=== PATIENT | male | born 1970 | race Two or more races ===

== ENCOUNTER 2017-11-23 13:21 | Inpatient (IN) | payer OTHER ==
[~2017-11-23] VITALS: Ht 175.3 cm; Wt 167.8 kg
[~2017-11-23 13:21] MED LIST: COZAAR50 MG; LOSARTAN-HCTZ1 EAC2 PO; SYNTHROID100 MCG; SYNTHROID88 MCG; [UNRECOGNIZED DRUG - REMARK]
[2017-11-23] MEDS ORDERED: TOPROL XL50 M1 (13:40)
== END 2017-11-29 18:46 | disposition home or self-care (01) | DRG 690 ==
LOC: ER 13:21 → MEDJ 22:08 → MEDI 22:08 → MEDJ 11-26 23:15
PROC: BW25Y0Z Computerized Tomography (CT Scan) of Chest, Abdomen and Pelvis using Other Contrast, Unenhanced and Enhanced (ICD-10-PCS; principal; 2017-11-23)
PROC: 8E0ZXY6 Isolation (ICD-10-PCS; 2017-11-26)
DX: N10 Acute pyelonephritis (principal); K92.2 Gastrointestinal hemorrhage, unspecified; B96.29 Other Escherichia coli [E. coli] as the cause of diseases classified elsewhere; Z16.12 Extended spectrum beta lactamase (ESBL) resistance; N20.0 Calculus of kidney

== ENCOUNTER 2018-01-12 18:17 | Inpatient (IN) | payer OTHER ==
[~2018-01-12] VITALS: Ht 177.8 cm; Wt 158.8 kg
[~2018-01-12 18:17] MED LIST changes: +TOPROL XL50 M1
== END 2018-01-16 18:01 | disposition home or self-care (01) | DRG 690 ==
LOC: ER 18:17 → MEDJ 01-13 09:58 → SEC-K 01-13 09:58 → MEDJ 01-13 10:57
DX: N10 Acute pyelonephritis (principal); Z68.43 Body mass index [BMI] 50.0-59.9, adult; B96.29 Other Escherichia coli [E. coli] as the cause of diseases classified elsewhere; N20.0 Calculus of kidney; K76.0 Fatty (change of) liver, not elsewhere classified; M54.89 Other dorsalgia; E03.8 Other specified hypothyroidism; I10 Essential (primary) hypertension; G47.33 Obstructive sleep apnea (adult) (pediatric); E66.01 Morbid (severe) obesity due to excess calories; Z88.0 Allergy status to penicillin

== ENCOUNTER → 2018-01-20 | Outpatient (CLI) | payer OTHER ==
[~2018-01-20] MED LIST changes: +[UNRECOGNIZED DRUG - OTHER] IV
== END | disposition home or self-care (01) ==
LOC: RAD 18:29
DX: N20.0 Calculus of kidney (principal)

== ENCOUNTER 2018-01-24 05:44 | Day surgery (SDC) | payer OTHER | END 2018-01-24 13:15 | disposition home or self-care (01) | LOC: CIR.AMB 05:44 | DX: N20.0 Calculus of kidney (principal) ==

== ENCOUNTER 2018-02-03 16:07 | Inpatient (IN) | payer OTHER ==
[~2018-02-03] VITALS: Ht 177.8 cm; Wt 167.4 kg
[2018-02-05] MEDS ORDERED: MERREM1 GM IV (16:07)
== END 2018-02-08 12:55 | disposition home or self-care (01) | DRG 690 ==
LOC: MEDJ 16:07 → SEC-K 16:07 → MEDJ 17:54
PROC: B246ZZZ Ultrasonography of Right and Left Heart (ICD-10-PCS; principal; 2018-02-04)
PROC: BW25Y0Z Computerized Tomography (CT Scan) of Chest, Abdomen and Pelvis using Other Contrast, Unenhanced and Enhanced (ICD-10-PCS; 2018-02-05)
DX: N10 Acute pyelonephritis (principal); N20.0 Calculus of kidney; I10 Essential (primary) hypertension; E03.8 Other specified hypothyroidism; B96.4 Proteus (mirabilis) (morganii) as the cause of diseases classified elsewhere; B96.1 Klebsiella pneumoniae [K. pneumoniae] as the cause of diseases classified elsewhere

== ENCOUNTER 2021-06-12 07:06 | Outpatient (CLI) | payer OTHER ==
[~2021-06-12 07:06] MED LIST changes: +MERREM1 GM IV
== END 2021-06-12 07:14 | disposition home or self-care (01) ==
LOC: TOM 07:06 → SONOGRAMA 07:06
PROVIDERS: ATTEND Internal Medicine
DX: G45.9 Transient cerebral ischemic attack, unspecified (principal); N18.30 Chronic kidney disease, stage 3 unspecified

== ENCOUNTER 2021-06-12 08:44 | Outpatient (CLI) | payer OTHER | END 2021-06-12 08:55 | disposition home or self-care (01) | LOC: LAB 08:44 | PROVIDERS: ATTEND Internal Medicine | DX: D64.9 Anemia, unspecified (principal); E11.9 Type 2 diabetes mellitus without complications; E78.00 Pure hypercholesterolemia, unspecified; N39.0 Urinary tract infection, site not specified; E03.8 Other specified hypothyroidism ==

== ENCOUNTER 2021-06-12 10:22 | Outpatient (CLI) | payer OTHER | END 2021-06-12 10:23 | disposition home or self-care (01) | LOC: NUCLEAR 10:22 | PROVIDERS: ATTEND Internal Medicine | DX: C45.9 Mesothelioma, unspecified (principal) ==

== ENCOUNTER 2021-06-19 09:03 | Outpatient (CLI) | payer OTHER | END 2021-06-19 14:34 | disposition home or self-care (01) | LOC: LAB 09:03 | PROVIDERS: ATTEND Internal Medicine | DX: G43.701 Chronic migraine without aura, not intractable, with status migrainosus (principal); R41.0 Disorientation, unspecified; Z11.3 Encounter for screening for infections with a predominantly sexual mode of transmission ==

== ENCOUNTER 2022-03-23 07:44 | Day surgery (SDC) | payer OTHER ==
[~2022-03-23 07:44] MED LIST changes: +IRBESARTAN-HCT1 EAC1 PO; +NORVASC10 MG PO
== END 2022-03-23 15:00 | disposition home or self-care (01) ==
LOC: CIR.AMB 07:44
PROVIDERS: ATTEND Urology
DX: N20.0 Calculus of kidney (principal); I10 Essential (primary) hypertension; E03.9 Hypothyroidism, unspecified; E66.09 Other obesity due to excess calories; Z20.822 Contact with and (suspected) exposure to COVID-19

== ENCOUNTER 2022-04-12 15:26 | Inpatient (IN) | payer OTHER ==
[~2022-04-12] VITALS: Ht 175.3 cm; Wt 140.6 kg
--- NOTE | 2022-04-12 16:08 | NUR ---
PACIENTE MASCULINO DE 51 ANOS REFIERE TENER FIEBRE, DOLOR DE ESPALDA Y ARDOR AL ORINAR. REFIERE QUE EL ELHAM 12 DE ENERO LO OPERARON CON LAIZER Y LE ROMPIERON JEWEL PIERDRAS EN EL RINON EZQUIERDO
--- NOTE | 2022-04-12 19:42 | NUR ---
SE ORIENTA PTE SOBRE EL TRATAMIENTO ORDENADO POR EL DR POWELL PTE ALERTA Y ORIENTADO POR 3 RN RICHIE REALIZA MUESTRAS DE LABORATORIO Y ADMINISTRAN MEDICAMENTOS DIDI ORDENADO.
[2022-04-16] MEDS ORDERED: MACRODANTIN100 M1 PO (10:20)
== END 2022-04-16 15:38 | disposition home or self-care (01) | DRG 699 ==
LOC: ER 15:26 → SEC-K 21:49 → SURH 21:49
PROVIDERS: ADMIT Internal Medicine; ATTEND Internal Medicine
PROC: BT43ZZZ Ultrasonography of Bilateral Kidneys (ICD-10-PCS; principal; 2022-04-12)
DX: T83.593A Infection and inflammatory reaction due to other urinary stents, initial encounter (principal); N10 Acute pyelonephritis; N39.0 Urinary tract infection, site not specified; Z68.42 Body mass index [BMI] 45.0-49.9, adult; B96.89 Other specified bacterial agents as the cause of diseases classified elsewhere; D69.59 Other secondary thrombocytopenia; T36.1X5A Adverse effect of cephalosporins and other beta-lactam antibiotics, initial encounter; Y92.230 Patient room in hospital as the place of occurrence of the external cause; Y73.1 Therapeutic (nonsurgical) and rehabilitative gastroenterology and urology devices associated with adverse incidents; Y84.6 Urinary catheterization as the cause of abnormal reaction of the patient, or of later complication, without mention of misadventure at the time of the procedure; I10 Essential (primary) hypertension; E03.9 Hypothyroidism, unspecified; E66.01 Morbid (severe) obesity due to excess calories; Z87.442 Personal history of urinary calculi

== ENCOUNTER 2022-06-08 15:52 | Outpatient (CLI) | payer OTHER ==
[~2022-06-08 15:52] MED LIST changes: +MACRODANTIN100 M1 PO
== END 2022-06-08 15:57 | disposition home or self-care (01) ==
LOC: RAD 15:52
PROVIDERS: ATTEND Urology
DX: R31.1 Benign essential microscopic hematuria (principal); N40.0 Benign prostatic hyperplasia without lower urinary tract symptoms; N20.0 Calculus of kidney

== ENCOUNTER 2023-05-08 16:11 | Emergency (ER) | payer OTHER ==
[~2023-05-08] VITALS: Ht 176.5 cm; Wt 145.1 kg
[2023-05-08] MEDS ORDERED: LIPITOR20 MG (16:51)
[2023-05-08] MEDS ORDERED: FOLIC ACID20 MG PO (16:51)
[2023-05-08] MEDS ORDERED: ADULT LOW DOSE81 M1 PO (16:52)
[2023-05-08] MEDS ORDERED: TRAMADOL HCL 50 MG TABLET PO STA (17:57)
[2023-05-08 18:43] LABS: HEMATOCRIT 47.5 % (39.0-48.0); HEMOGLOBIN 15.8 g/dL (13-16.00); MEAN CELL VOLUME 90.8 fL (80.0-100.00); MEAN CORPUSCULAR HEMOGLOBIN 30.1 pg (27.00-32.0); MEAN CORPUSCULAR HGB CONC 33.2 g/dl (32.0-36.0); PLATELET COUNT 189 K/uL (150-450); RED BLOOD COUNT 5.23 M/uL (4.00-6.00); RED CELL DISTRIBUTION WIDTH 14.6 % (11.5-14.5)
[2023-05-08 20:19] LABS: CALCIUM 9.8 mg/dL (8.5-10.1); CREATININE SERUM 1.24 mg/dL (0.70-1.30); GFR 60.98; POTASSIUM 3.83 mEq/L (3.5-5.1)
[2023-05-08 20:21] LABS: PH,URINE 5.5 (5.0-8.0); URINE APPEARANCE Clear; URINE BILIRRUBIN Negative (NEGATIVE); URINE BLOOD Moderate; URINE COLOR Yellow; URINE GLUCOSE Negative (NEGATIVE); URINE LEUKOCYTE Negative; URINE NITRATE Negative; URINE PROTEIN Trace (NEGATIVE); URINE UROBILINOGEN 0.2 E.U./dl
[2023-05-08 20:31] LABS: URINE BACTERIA 35.2 uL (0.0-1933); URINE EPITHELIAL CELLS 2.4 uL (0.0-38.8); URINE RBC 15.3 uL (0.0-20.8); URINE WBC 2.7 uL (0.0-23.2)
[2023-05-08] MEDS ORDERED: KETOROLAC TROMETHAMINE 30 MG VIAL IM STA (20:57)
== END 2023-05-08 21:03 | disposition home or self-care (01) ==
LOC: ER 16:11
PROVIDERS: General Practice
DX: N20.0 Calculus of kidney (principal); B96.89 Other specified bacterial agents as the cause of diseases classified elsewhere; Z88.8 Allergy status to other drugs, medicaments and biological substances

== ENCOUNTER 2025-01-14 10:23 | Outpatient (CLI) | payer OTHER ==
[~2025-01-14 10:23] MED LIST changes: +ADULT LOW DOSE81 M1 PO; +FOLIC ACID20 MG PO; +LIPITOR20 MG
== END 2025-01-14 10:25 | disposition home or self-care (01) ==
LOC: SONOGRAMA 10:23
PROVIDERS: ATTEND Pathology Anatomic Pathology & Clinical Pathology
DX: D34 Benign neoplasm of thyroid gland (principal); E04.2 Nontoxic multinodular goiter; E07.89 Other specified disorders of thyroid; N20.0 Calculus of kidney; R31.1 Benign essential microscopic hematuria